=== PATIENT | female | born 1950 ===

== ENCOUNTER 2024-04-21 09:37 | Inpatient (IN) | payer MEDICARE, MEDICAID ==
[~2024-04-21] VITALS: Ht 157.5 cm; Wt 50.0 kg
[2024-04-21 10:35] LABS: COVID AG,FIA SOURCE NASAL SWAB
[2024-04-21 10:45] LABS: APPEARANCE,URINE HAZY (CLEAR); BILIRUBIN,URINE NEGATIVE (NEGATIVE); COLOR,URINE LIGHT YELLOW (YELLOW); GLUCOSE, URINE (UA) NEGATIVE (NEGATIVE); KETONES,URINE NEGATIVE (NEGATIVE); LEUKOCYTE ESTERASE ,URINE LARGE (NEGATIVE); NITRATE,URINE NEGATIVE (NEGATIVE); OCCULT BLOOD,URINE TRACE (NEGATIVE); PROTEIN,URINE TRACE mg/dL (NEGATIVE); SPECIFIC GRAVITIY, URINE 1.014 (1.003-1.030); UROBILINOGEN,URINE <=1.0 mg/dL (<=1.0)
[2024-04-21 10:48] LABS: EOSINOPHILS % (AUTO) 4.2 % (1.0-6.0); HEMATOCRIT 38.9 % (36-46); HEMOGLOBIN 12.6 g/dL (12.0-16.0); LYMPHOCYTES # (AUTO) 1.8 K/uL (1.0-4.8); MEAN CORPUSCULAR HEMOGLOBIN 27.3 pg (26.0-34.0); MEAN CORPUSCULAR HGB CONC 32.3 G/dL (31.0-37.0); MEAN CORPUSCULAR VOLUME 85 fL (80-100); MONOCYTES # (AUTO) 0.4 K/uL (0.1-1.0); MONOCYTES % (AUTO) 5.9 % (2.0-9.0); NEUTROPHILS # (AUTO) 3.8 K/uL (1.8-7.7); NEUTROPHILS % (AUTO) 59.9 % (40.0-70.0); PLATELET COUNT (AUTO) 280 K/uL (150-450); RED CELL DISTRIBUTION WIDTH 14.5 % (11.5-14.5); WHITE BLOOD COUNT (AUTO) 6.4 K/uL (4.5-11.0)
[2024-04-21 10:54] LABS: BACTERIA,URINE Few /HPF (None Seen); RBC,URINE 0-2 /HPF (0-2); SQUAMOUS EPITHELIAL CELL,UR Few /LPF (None Seen); WBC,URINE 51-100 /HPF (0-5)
[2024-04-21 10:59] LABS: SARS-COV2 (COVID) ANTIGEN,FIA Negative (Negative)
[2024-04-21 11:04] LABS: ANION GAP 7 mmol/L (8-16); CALCIUM, TOTAL 9.8 mg/dL (8.8-10.5); CARBON DIOXIDE 26 mmol/L (22-29); CHLORIDE 104 mmol/L (98-107); CREATININE 1.12 mg/dL (0.60-1.30); GLOMERULAR FILTR. RATE CALC 48 mL/min (>60); GLUCOSE,RANDOM 89 mg/dL (70-110); SODIUM SERUM 137 mmol/L (136-145); UREA NITROGEN, BLOOD 21 mg/dL (7-18)
[2024-04-21 12:05] LABS: ALCOHOL, URINE DRUG SCREEN NEGATIVE (NEGATIVE); AMPHET/METH SCREEN,URINE NEGATIVE (NEGATIVE); BARBITURATE SCREEN, URINE NEGATIVE (NEGATIVE); BENZODIAZEPINES SCREEN,URINE POSITIVE (NEGATIVE); CANNABINOID SCREEN,URINE POSITIVE (NEGATIVE); COCAINE SCREEN,URINE POSITIVE (NEGATIVE); METHADONE SCREEN, URINE NEGATIVE (NEGATIVE); OPIATE SCREEN,URINE NEGATIVE (NEGATIVE); PHENCYCLIDINE SCREEN,URINE NEGATIVE (NEGATIVE)
[2024-04-21 12:06] LABS: ALCOHOL, BLOOD (SERUM) < 3 mg/dL (0-10)
[2024-04-21] MEDS: CEPHALEXIN MONOHYDRATE 500 MG CAPSULE PO ONE ×2 (12:43→21:00)
[2024-04-21] MEDS: HydrOXYzine PAMOATE 50 MG CAPSULE PO ONE (12:44)
[2024-04-21] MEDS: ACETAMINOPHEN 500 MG TABLET PO ONE (12:44)
[2024-04-21] MEDS ORDERED: HALOPERIDOL 5 MG TABLET PO PRN (13:15)
[2024-04-21] MEDS ORDERED: DENTURE ADHESIVE 68 GM CREAM DT PRN (18:30)
[2024-04-21 18:36] VITALS: RESP 17
[2024-04-21] MEDS: ZOLPIDEM TARTRATE 10 MG TABLET PO PRN (21:12)
[2024-04-21] MEDS: DENTURE CLEANSER TABLET [8'S] DT SCH (21:12)
[2024-04-21] MEDS: LORazepam 2 MG TABLET PO PRN (21:13)
[2024-04-21 23:28] VITALS: BP 128/51; PULSE 77; RESP 18; TEMP 97.1; O2SAT 99
[2024-04-22 11:35] VITALS: BP 94/51; PULSE 75; RESP 18; TEMP 97.5; O2SAT 98
[2024-04-22] MEDS ORDERED: NICOTINE 14 MG/24 HOUR PATCH TD PRN (12:15)
[2024-04-22] MEDS ORDERED: MAG HYDROX/ALUMINUM HYD/SIMETH ES 30 ML SUSPENSION UDCUP PO PRN (12:15)
[2024-04-22] MEDS ORDERED: DOCUSATE SODIUM 100 MG CAPSULE PO PRN (12:15)
[2024-04-22] MEDS ORDERED: MAGNESIUM HYDROXIDE SUSPENSION 30 ML UDCUP PO PRN (12:15)
[2024-04-22] MEDS ORDERED: PETROLATUM,WHITE 28 GM JELLY TP PRN (12:15)
[2024-04-22] MEDS ORDERED: CloNIDine HCL 0.1 MG TABLET PO PRN (12:15)
[2024-04-22] MEDS ORDERED: ONDANSETRON HCL 4 MG TABLET PO PRN (12:15)
[2024-04-22] MEDS ORDERED: LOPERAMIDE HCL 2 MG CAPSULE PO PRN (12:15)
[2024-04-22] MEDS ORDERED: GuaiFENesin/D-METHORPHAN [SUGAR-FREE] 200-20MG/10 ML SYRUP UDCUP PO PRN (12:15)
[2024-04-22] MEDS ORDERED: ALBUTEROL SULFATE HFA 90 MCG/PUFF 8 GM INHALER IH PRN (12:15)
[2024-04-22] MEDS ORDERED: LORazepam 2 MG/ML VIAL ONE (12:56)
[2024-04-22] MEDS ORDERED: HALOPERIDOL LACTATE 5 MG/ML VIAL ONE (12:56)
[2024-04-22] MEDS ORDERED: DiphenhydrAMINE HCL 50 MG/ML VIAL ONE (12:57)
[2024-04-22] MEDS: CEPHALEXIN MONOHYDRATE 500 MG CAPSULE PO SCH (17:00)
[2024-04-22] MEDS: SULFAMETHOX/TRIMETH DS 800-160 MG/TABLET PO SCH (18:58)
[2024-04-22 20:30] VITALS: RESP 18
[2024-04-22] MEDS: ACETAMINOPHEN 325 MG TABLET PO PRN (20:38)
[2024-04-22 21:30] VITALS: RESP 18
[2024-04-22 22:25] VITALS: BP 106/58; PULSE 100; RESP 18; TEMP 97.6; O2SAT 97
[2024-04-23 07:07] LABS: HEMOGLOBIN A1C 5.2 % (3.8-5.6)
[2024-04-23 07:29] LABS: CHOL/HDL RATIO 2.7 (3.9-5.7); THYROID STIMULATING HORMONE 0.55 uIU/mL (0.36-3.74)
[2024-04-23 10:22] VITALS: BP 144/73; PULSE 96; RESP 18; TEMP 98.4; O2SAT 100
[2024-04-23 18:32] VITALS: RESP 18
[2024-04-23 23:55] VITALS: BP 129/72; PULSE 110; RESP 18; TEMP 98.1
[2024-04-24 00:30] VITALS: RESP 18
[2024-04-24] MEDS: ACETAMINOPHEN 325 MG TABLET PO PRN (00:38)
[2024-04-24 01:30] VITALS: RESP 18
[2024-04-24 09:46] VITALS: BP 126/82; PULSE 99; RESP 19; TEMP 95.6
== END 2024-04-24 11:30 | disposition home or self-care (01) | DRG 885 ==
LOC: EMS 09:37 → 3EX 15:43 → 3EC 23:26
PROVIDERS: ADMIT Psychiatry & Neurology Child & Adolescent Psychiatry; ATTEND Psychiatry & Neurology Child & Adolescent Psychiatry
DX: F29 Unspecified psychosis not due to a substance or known physiological condition (principal); N39.0 Urinary tract infection, site not specified; I10 Essential (primary) hypertension; F19.10 Other psychoactive substance abuse, uncomplicated; Z20.822 Contact with and (suspected) exposure to COVID-19; F42.9 Obsessive-compulsive disorder, unspecified; M54.9 Dorsalgia, unspecified; G89.29 Other chronic pain; Z88.8 Allergy status to other drugs, medicaments and biological substances; Z88.5 Allergy status to narcotic agent
CPT/HCPCS: 80048; 80061; 80307; 81001; 83036; 84443; 85025; 87086; 87186; 99285; G0480; J1200; J1630; J2060